=== PATIENT | female | born 2000 | race African-American/Black ===

== ENCOUNTER 2025-03-08 07:23 | Emergency (ER) | payer SELFPAY ==
[2025-03-08] MEDS ORDERED: Ondansetron PF 4 MG/2 ML Vial ONE (08:01)
[2025-03-08 08:21] LABS: #Basophils 0.1 thou/uL (0.0-0.2); #Eosinophils 0.0 thou/uL (0.0-0.7); #Lymphocytes 0.8 thou/uL (1.20-3.40); #Monocytes 0.3 thou/uL (0.11-0.59); #Neutrophils 6.1 thou/uL (1.40-6.50); %Basophils 0.9 % (0.0-1.0); %Eosinophils 0.0 % (0.0-10.0); %Lymphocytes 10.7 % (21.0-51.0); %Monocytes 4.5 % (0.0-10.0); %Neutrophils 83.8 % (42.0-75.0); Hematocrit 42.5 % (36.0-47.0); Hemoglobin 15.0 g/dL (12.0-16.0); Mean Corpuscular Hemoglobin 28.6 pg (27.0-31.0); Mean Corpuscular Volume 80.8 fl (78.0-98.0); Platelet Count 270 10x3/uL (130-400); Red Blood Cell (RBC) Count 5.25 mill/uL (4.20-5.40); White Blood Cell (WBC) Count 7.3 10x3/uL (4.8-10.8)
[2025-03-08] MEDS ORDERED: Ketorolac Tromethamine 30 MG (1 mL) VIAL ONE (08:26)
[2025-03-08] MEDS ORDERED: Pantoprazole 40 MG VIAL ONE (08:26)
[2025-03-08 08:34] LABS: ALT (SGPT) 30 U/L (Less than 34); AST (SGOT) 35 U/L (11-34); Albumin 5.3 g/dL (3.1-4.5); Alkaline Phosphatase 52 U/L (40-110); Anion Gap 21 mmol/L (10-20); BUN (Urea Nitrogen) 13 mg/dL (7.0-18.7); Bilirubin, Total 1.4 mg/dL (0.3-1.2); Calc. Creatinine Clearance 0 mL/min (70-130); Calcium 10.2 mg/dL (7.8-10.44); Carbon Dioxide 18 mmol/L (22-29); Chloride 102 mmol/L (98-107); Globulin 3.4 g/dL (2.4-3.5); Glucose 109 mg/dL (70-105); Lipase 19 U/L (8-78); Sodium 138 mmol/L (136-145)
[2025-03-08 08:35] LABS: Potassium 2.6 mmol/L (3.5-5.1)
[2025-03-08] MEDS ORDERED: NS 0.9% w/ 20 MEQ KCL 1,000 ML ONE ×2 (08:42→11:55)
[2025-03-08 08:43] LABS: BHCG - Serum Negative (NEGATIVE); Pregs Control Bar Appear? YES (CONTROL BAR)
[2025-03-08] MEDS ORDERED: Iopamidol 370 76% 100 ML VIAL ONE (09:00)
[2025-03-08 13:11] LABS: Glucose, Urine (Dipstick) Negative (Negative); Leukocyte Negative (Negative); Protein, Urine (Dipstick) 100 mg/dL (Neg-Trace); Specific Gravity, Urine 1.010 (1.005-1.030)
[2025-03-08 13:22] LABS: CAUTI Indications for Culture Pelvic or flank pain; RBC/HPF 0-3 HPF (0-3); Urine Culture Reflex No No; WBC/HPF 0-3 HPF (0-3)
== END 2025-03-08 13:00 | disposition short-term general hospital (02) ==
LOC: NAV ERS 07:23
DX: R11.2 Nausea with vomiting, unspecified (principal); D27.0 Benign neoplasm of right ovary; E87.6 Hypokalemia
CPT/HCPCS: 36415; 74177; 80053; 81001; 83690; 84703; 85025; 96365; 96366; 96367; 96375; J1630; J1885; J2405; J2470; J2550; J3480; J7030; Q9967